=== PATIENT | female | born 1985 | race Caucasian/White ===

== ENCOUNTER 2018-06-12 16:22 | Inpatient (IN) | payer MEDICAID ==
[~2018-06-12] VITALS: Ht 162.6 cm; Wt 70.9 kg
[~2018-06-12 16:22] MED LIST: HYDR-3240 PO; IBUP-1222 PO; PREN1TAB60 PO
[2018-06-12] MEDS ORDERED: OXYTOCIN 30U/ 0.9% NaCL 500ML 500 ML IV ONE (16:31)
[2018-06-12] MEDS: D5%-LACTATED RINGERS 1,000 ML IV SCH (16:31)
[2018-06-12] MEDS ORDERED: FENTANYL/BUPIV./NS/PF 250 ML EPIDCONT SCH ×2 (16:41→18:59)
[2018-06-12] MEDS ORDERED: NEWBORN KIT ONE (16:53)
[2018-06-12] MEDS ORDERED: LIDOCAINE/PF 1%, 30ML ONE ×2 (16:53→19:38)
[2018-06-12] MEDS ORDERED: MISOPROSTOL 200 MCG TABLET ONE ×2 (16:53→19:37)
[2018-06-12] MEDS ORDERED: OXYTOCIN 30U/ 0.9% NaCL 500ML 500 ML ONE ×2 (16:53→19:37)
[2018-06-12] MEDS: LACTATED RINGERS 1,000 ML IV SCH ×2 (16:57→17:37)
[2018-06-12] MEDS ORDERED: FENTANYL PF 100 MCG/2ML IVPush PRN (17:00)
[2018-06-12] MEDS ORDERED: CALCIUM CARBONATE 500 MG TAB.CHEW PO PRN (17:00)
[2018-06-12] MEDS ORDERED: ONDANSETRON 2MG/ML, 2ML IVPush PRN ×2 (17:00→19:00)
[2018-06-12] MEDS ORDERED: FENTANYL PF 500 MCG, BUPIVACAINE/PF 0.5%, 30ML 62.5 ML in SODIUM CHLORIDE 0.9% 177.5 ML EPIDCONT SCH (17:00)
[2018-06-12] MEDS ORDERED: FENTANYL PF 100 MCG/2ML IV PRN (17:00)
[2018-06-12 17:01] LABS: BASOPHILS # (AUTO) 0.03 x10^3/uL (0-0.1); BASOPHILS % (AUTO) 0 % (0-1); EOSINOPHILS # (AUTO) 0.12 x10^3/uL (0-0.4); EOSINOPHILS % (AUTO) 1 % (1-7); LYMPHOCYTES # (AUTO) 1.42 x10^3/uL (1-3.4); LYMPHOCYTES % (AUTO) 11 % (22-44); MD NO; MEAN CORPUSCULAR HEMOGLOBIN 32.4 pg (27.0-34.8); MEAN CORPUSCULAR HGB CONC 33.8 g/dL (32.4-35.8); MEAN PLATELET VOLUME 10.6 fL (7.4-10.4); MONOCYTES # (AUTO) 0.69 x10^3/uL (0.2-0.8); MONOCYTES % (AUTO) 6 % (2-9); NEUTROPHILS # (AUTO) 10.29 x10^3/uL (1.8-6.8); NEUTROPHILS % (AUTO) 82 % (42-75); PLATELET COUNT 207 x10^3/uL (130-400); RED BLOOD COUNT 3.81 x10^6/uL (3.82-5.3); RED CELL DISTRIBUTION WIDTH 13.4 % (9.6-15.2)
[2018-06-12] MEDS ORDERED: BUPIVACAINE 0.25% ONE (17:21)
[2018-06-12] MEDS ORDERED: EPHEDRINE 50 MG/ML, 1ML ONE (18:12)
[2018-06-12] MEDS ORDERED: EPHEDRINE 50 MG/ML, 1ML IVPush ONE (18:30)
[2018-06-12] MEDS ORDERED: LACTATED RINGERS 1,000 ML IV SCH (18:59)
[2018-06-12] MEDS ORDERED: DIPHENHYDRAMINE 50 MG/ML, 1ML IVPush PRN (19:00)
[2018-06-12] MEDS ORDERED: EPHEDRINE 50 MG/ML, 1ML IVPush PRN (19:00)
[2018-06-12] MEDS ORDERED: NALOXONE 0.4 MG/ML, 1ML IVPush PRN (19:00)
[2018-06-12] MEDS ORDERED: LACTATED RINGERS 1,000 ML IVBOLUS PRN (19:00)
[2018-06-12 19:23] VITALS: BP 122/77
[2018-06-12] MEDS: OXYTOCIN 30U/ 0.9% NaCL 500ML 500 ML IV SCH (21:23)
[2018-06-12] MEDS ORDERED: GLYCERIN ADULT SUPP PR PRN (21:30)
[2018-06-12] MEDS ORDERED: BISACODYL 10 MG SUPP PR PRN (21:30)
[2018-06-12] MEDS ORDERED: IBUPROFEN 800 MG TABLET PO PRN (21:30)
[2018-06-12] MEDS ORDERED: ACETAMINOPHEN 325 MG TABLET PO PRN (21:30)
[2018-06-12] MEDS ORDERED: METOCLOPRAMIDE 5 MG/ML, 2ML IV PRN (21:30)
[2018-06-12] MEDS ORDERED: MISOPROSTOL 200 MCG TABLET PR PRN (21:30)
[2018-06-12] MEDS ORDERED: METHYLERGONOVINE 0.2 MG/ML IM PRN (21:30)
[2018-06-12] MEDS ORDERED: CARBOPROST TROMETHAMINE 250 MCG/ML, 1ML IM PRN (21:30)
[2018-06-12] MEDS ORDERED: ONDANSETRON 2MG/ML, 2ML IV PRN (21:30)
[2018-06-12] MEDS ORDERED: HYDROcodone/APAP 5/325 TABLET PO PRN ×2 (21:30)
[2018-06-12] MEDS ORDERED: DOCUSATE 100 MG CAPSULE PO PRN (21:30)
[2018-06-12] MEDS ORDERED: IBUPROFEN 600 MG TABLET ONE (22:21)
[2018-06-12] MEDS: IBUPROFEN 600 MG TABLET PO PRN (22:23)
[2018-06-12 23:15] VITALS: BP 118/76
[2018-06-13] MEDS: D5%-LACTATED RINGERS 1,000 ML IV SCH (00:31)
[2018-06-13 04:16] VITALS: BP 112/77
[2018-06-13 04:56] LABS: BASOPHILS # (AUTO) 0.25 x10^3/uL (0-0.1); BASOPHILS % (AUTO) 2 % (0-1); EOSINOPHILS # (AUTO) 0.28 x10^3/uL (0-0.4); EOSINOPHILS % (AUTO) 2 % (1-7); LYMPHOCYTES % (AUTO) 11 % (22-44); MD NO; MEAN CORPUSCULAR HEMOGLOBIN 32.3 pg (27.0-34.8); MEAN CORPUSCULAR HGB CONC 33.8 g/dL (32.4-35.8); MEAN CORPUSCULAR VOLUME 95.7 fL (80-100); MEAN PLATELET VOLUME 10.5 fL (7.4-10.4); MONOCYTES # (AUTO) 0.64 x10^3/uL (0.2-0.8); MONOCYTES % (AUTO) 5 % (2-9); NEUTROPHILS # (AUTO) 10.48 x10^3/uL (1.8-6.8); NEUTROPHILS % (AUTO) 80 % (42-75); PLATELET COUNT 182 x10^3/uL (130-400); RED BLOOD COUNT 3.54 x10^6/uL (3.82-5.3); RED CELL DISTRIBUTION WIDTH 13.4 % (9.6-15.2)
[2018-06-13 07:00] VITALS: BP 115/76
[2018-06-13] MEDS: OXYTOCIN 30U/ 0.9% NaCL 500ML 500 ML IV SCH (07:23)
[2018-06-13] MEDS: IBUPROFEN 600 MG TABLET PO PRN ×2 (07:36→16:31)
[2018-06-13] MEDS ORDERED: PRENATAL VIT/IRON/FA 1 EACH TABLET PO SCH (09:00)
[2018-06-13] MEDS ORDERED: NITROFURANTOIN (MACROBID) 100 MG CAPSULE PO SCH (09:00)
[2018-06-13 12:15] VITALS: BP 105/68
[2018-06-13] MEDS ORDERED: IBUP-1222 PO (13:28)
[2018-06-13 16:33] VITALS: BP 110/68
== END 2018-06-13 17:50 | disposition home or self-care (01) | DRG 775 ==
LOC: LDOP 16:22 → LDIP 16:53 → 2NW 23:02
PROVIDERS: ADMIT Student in an Organized Health Care Education/Training Program; ATTEND Student in an Organized Health Care Education/Training Program
PROC: 10E0XZZ Delivery of Products of Conception, External Approach (ICD-10-PCS; principal; 2018-06-12)
PROC: 10907ZC Drainage of Amniotic Fluid, Therapeutic from Products of Conception, Via Natural or Artificial Opening (ICD-10-PCS; 2018-06-12)
PROC: 3E0R3BZ Introduction of Anesthetic Agent into Spinal Canal, Percutaneous Approach (ICD-10-PCS; 2018-06-12)
PROC: 00HU33Z Insertion of Infusion Device into Spinal Canal, Percutaneous Approach (ICD-10-PCS; 2018-06-12)
DX: O80 Encounter for full-term uncomplicated delivery (principal); Z37.0 Single live birth; Z3A.38 38 weeks gestation of pregnancy; Z83.3 Family history of diabetes mellitus; Z88.6 Allergy status to analgesic agent; Z91.040 Latex allergy status
CPT/HCPCS: 36415; 85025; 86850; 86900; G0378; J3010; J3490; J7050; J7120